=== PATIENT | female | born 1940 | race Caucasian/White ===

== ENCOUNTER 2023-12-03 13:44 | Outpatient (OUT) | payer MEDICARE, SELFPAY ==
--- NOTE | 2023-12-03 13:57 | US_ITS ---
[address] [address] Patient Name: ASHLIE BUCK MRN: [id number] date: 1940 Sex: F Assigned Patient Location: US Current Patient Location: Accession/Order Number: [id number] Exam Date: 12/03/2023 13:58 Report Date: 12/04/2023 06:43 At the request of: QUIANA SANDERS Procedure: US thyroid EXAMINATION: US thyroid HISTORY: Thyroid Nodule E04.1 COMPARISON: Ultrasound thyroid biopsy 05/03/2022, ultrasound thyroid 02/06/2022 FINDINGS: RIGHT LOBE: Slightly heterogeneous echotexture. No suspicious nodules. Lobe size: 2.8 x 1.0 x 1.0 cm LEFT LOBE: Slightly heterogeneous and contains a 2.8 x 1.8 x 2.1 cm TR 4 nodule within mid body. Incidental 7 mm colloid cyst. Lobe size: 4.1 x 2.3 x 2.4 cm ISTHMUS: Normal size and echotexture. Thickness: 2 mm US/US thyroid IMPRESSION: 1. Stable 2.8 cm TR 4 nodule within left lobe; previously biopsied with pathology results stating benign follicular nodule. 2. No new findings. Electronically authenticated by: MARJ GENTILE Date: 12/04/2023 06:43
== END 2023-12-03 13:45 | disposition home or self-care (01) ==
LOC: US 13:48
PROVIDERS: PCP Internal Medicine; Visit Provider Otolaryngology
DX: E04.1 Nontoxic single thyroid nodule (principal)
CPT/HCPCS: 76536